=== PATIENT | female | born 1950 ===

== ENCOUNTER 2018-07-21 03:06 | Inpatient (IN) | payer MEDICARE, MEDICAID ==
[2018-07-21 03:06] VITALS: BMI 31.1
[2018-07-21] MEDS ORDERED: Sodium Chloride 0.9% 1,000 ML IV ONE ×2 (03:27→07:06)
--- NOTE | 2018-07-21 03:29 | C.PDOC ---
History Of Present Illness 67 year old female presents to the ED c/o abdominal pain and rectal bleeding that started yesterday. Patient also noticed some bleeding tonight, not heavy bleeding. Patient denies dizziness, headache, CP, palpitations, SOB, nausea, vomit, diarrhea, weakness, numbness. Chief Complaint (Nursing): Abdominal Pain History Per: Patient History/Exam Limitations: no limitations Onset/Duration Of Symptoms: Days Current Symptoms Are (Timing): Still Present Location Of Pain/Discomfort: Diffuse Radiation Of Pain To:: None Quality Of Discomfort: "Pain" Associated Symptoms: denies: Nausea, Vomiting, Diarrhea, Urinary Symptoms Alleviating Factors: None Recent travel outside of the [place]: No Additional History Per: Patient Abnormal Vaginal Bleeding: No Past Medical History Reviewed: Historical Data, Nursing Documentation, Vital Signs Vital Signs: Last Vital Signs Temp 97.9 F 07/21/18 03:15 Pulse 109 H 07/21/18 03:15 Resp 20 07/21/18 03:15 BP 146/80 07/21/18 03:15 Pulse Ox 99 07/21/18 06:01 - Medical History PMH: Anxiety, Arthritis, Depression, Diabetes (type II), Graves' Disease, HTN, Hypercholesterolemia Denies: Chronic Kidney Disease Surgical History: No Surg Hx - [facility] Procedures GROUP PSYCHOTHERAPY (01/05/17) INDIVIDUAL PSYCHOTHERAPY, COGNITIVE-BEHAVIORAL (01/05/17) OTHER SKIN & SUBQ I D (02/07/15) Family History: States: Unknown Family Hx - Social History Hx Tobacco Use: No Hx Alcohol Use: No Hx Substance Use: No - Immunization History Hx Tetanus Toxoid Vaccination: No Hx Influenza Vaccination: No Hx Pneumococcal Vaccination: No Review Of Systems Constitutional: Negative for: Fever, Chills Cardiovascular: Negative for: Chest Pain, Palpitations Respiratory: Negative for: Cough, Shortness of Breath Gastrointestinal: Positive for: Abdominal Pain, Melena. Negative for: Nausea, Vomiting Skin: Negative for: Rash Neurological: Negative for: Weakness, Numbness, Headache, Dizziness Physical Exam - Physical Exam Appears: Non-toxic, No Acute Distress Skin: Normal Color, Warm, Dry Head: Atraumatic, Normacephalic Eye(s): bilateral: Normal Inspection Oral Mucosa: Moist Neck: Normal ROM, Supple Chest: Symmetrical Cardiovascular: Rhythm Regular Respiratory: Normal Breath Sounds, No Rales, No Rhonchi, No Wheezing Gastrointestinal/Abdominal: Soft, Tenderness (mild hypogastric), No Guarding, No Rebound Rectal: Other (blood mucoid material observed, no active bleeding ) Extremity: Normal ROM, No Tenderness, No Swelling Neurological/Psych: Oriented x3, Normal Speech Gait: Steady ED Course And Treatment - Laboratory Results Result Diagrams: 07/21/18 03:35 07/21/18 03:35 O2 Sat by Pulse Oximetry: 99 (ON RA) Pulse Ox Interpretation: Normal - CT Scan/US CT abd/pelvis Other Rad Studies (CT/US): Read By Radiologist, Radiology Report Reviewed CT/US Interpretation: EXAM: CT Abdomen and Pelvis With Intravenous Contrast. EXAM DATE/TIME: 07/21/2018 3:26 AM. CLINICAL HISTORY: 67 years old, female; Pain; Abdominal pain; Patient HX: 1-7-17; Additional info: Lower abd pain/. rectal bleed. TECHNIQUE: Axial computed tomography images of the abdomen and pelvis with intravenous contrast. 723. images are submitted. Axial reformatted images are submitted in lung and soft tissues. Oral contrast. was administered. All CT scans at this facility use at least one of these dose optimization techniques: automated. exposure control; mA and/or kV adjustment per patient size (includes targeted exams where dose is. matched to clinical indication); or iterative reconstruction. Coronal and sagittal reformatted images were created and reviewed. COMPARISON: CT - ABD PELVIS PO CONTRAST ONLY 12/05/2016 2:18 PM. FINDINGS: Artifacts: Limited due to motion and misregistration artifacts. Lower thorax: There is hazy groundglass opacity to the lungs with hyperlucency. Correlation with. patient's clinical history of reactive airway disease is recommended. ABDOMEN: Liver: Enlarged fatty nodular liver. Gallbladder and bile ducts: Gallstones gallbladder wall prominence.If clinically warranted, a right. upper quadrant ultrasound and correlation with LFTs may be helpful for further assessment. Pancreas: Normal. No ductal dilation. Spleen: Normal. No splenomegaly. SHILPI PADILLA | Preliminary Radiology Report. CONFIDENTIALITY STATEMENT. This report is intended only for the use of the referring physician, and only in accordance with law, If you received this in error, call [phone]. Page 2 of 2. Adrenals: Minimal nodular thickening of the right adrenal gland. Left adrenal gland unchanged from. prior examination from 2017 representing benign etiology. Kidneys and ureters: Normal. No hydronephrosis. Stomach and bowel: Diverticulosis. There is thickening of splenic flexure and left colon with. pericolic inflammation and possible left upper quadrant diverticulosis suspicious for infectious or. inflammatory colitis/diverticulitis. Appendix: Normal appendix. PELVIS: Bladder: Partially decompressed bladder with bladder wall thickening. Correlation with urinalysis is. recommended only if clinical cystitis is suspected. Reproductive: Uterus is seen. ABDOMEN and PELVIS: Intraperitoneal space: Normal. No free air. No significant fluid collection. Bones/joints: No acute fracture. No dislocation. Soft tissues: Unremarkable. Vasculature: The aorta demonstrates calcified plaque and is mildly ectatic but normal in caliber. Lymph nodes: Normal. No enlarged lymph nodes. Other findings: Clips slow transit. IMPRESSION: 1. There is thickening of splenic flexure and left colon with pericolic inflammation and possible left. upper quadrant diverticulosis suspicious for infectious or inflammatory colitis/ diverticulitis. 2. Gallstones gallbladder wall prominence.If clinically warranted, a right upper quadrant ultrasound. and correlation with LFTs may be helpful for further assessment. Correlation with internal medicine evaluation and further workup or followup as recommended by. patient's clinical data. Thank you for allowing us to participate in the care of your patient. Dictated and Authenticated by: Gracie Arauz MD. 07/21/2018 5:54 AM Eastern Time ( [place] & [place]) Medical Decision Making Medical Decision Making: Plan: * CT abd/pelvis * Labs * IV fluids * UA Disposition Discussed With : Melanie Du Doctor Will See Patient In The: Hospital Counseled Patient/Family Regarding: Diagnosis - Disposition Disposition: HOSPITALIZED Disposition Time: 06:35 Condition: STABLE Forms: [facility] ([place]ian) - POA Present On Arrival: None - Clinical Impression Clinical Impression: Rectal bleed, Diverticulitis, UTI (urinary tract infection) - Scribe Statement The provider has reviewed the documentation as recorded by the Scribe Rubio Herndon All medical record entries made by the Scribe were at my direction and personally dictated by me. I have reviewed the chart and agree that the record accurately reflects my personal performance of the history, physical exam, medical decision making, and the department course for this patient. I have also personally directed, reviewed, and agree with the discharge instructions and disposition.
[2018-07-21] MEDS ORDERED: Iohexol 240 (50 ml) PO ONE (03:31)
[2018-07-21 03:39] LABS: BASO # 0.1 K/uL (0.0-0.2); BASO % 0.6 % (0.0-2.0); EOS # 0.2 K/uL (0.0-0.7); EOS % 2.5 % (0.0-4.0); HEMOGLOBIN 12.9 g/dL (11.0-16.0); LYMPH # 3.2 K/uL (1.0-4.3); MEAN CELL VOLUME 84.5 fL (81.0-99.0); MEAN CORPUSCULAR HEMOGLOBIN 27.8 pg (27.0-31.0); MEAN CORPUSCULAR HGB CONC 32.9 g/dL (33.0-37.0); MEAN PLATELET VOLUME 9.7 fL (7.2-11.7); MONO # 0.5 K/uL (0.0-0.8); MONO % 4.8 % (0.0-10.0); NEUT # 5.7 K/uL (1.8-7.0); NEUT % 59.1 % (50.0-75.0); RBC 4.64 Mil/uL (3.80-5.20); RED CELL DISTRIBUTION WIDTH 13.3 % (11.5-14.5); WHITE BLOOD COUNT 9.7 K/uL (4.8-10.8)
[2018-07-21] MEDS ORDERED: Iohexol 240 (50 ml) ONE (03:43)
[2018-07-21] MEDS ORDERED: Sodium Chloride 0.9% 1,000 ML ONE (03:43)
[2018-07-21 03:49] LABS: INR 1.1; PROTHROMBIN TIME 12.3 SECONDS (9.7-12.2)
[2018-07-21 03:50] LABS: ALB/GLOB RATIO 1.2 (1.0-2.1); ALBUMIN 4.5 g/dL (3.5-5.0); ALT/SGPT 25 U/L (9-52); AST/SGOT 26 U/L (14-36); BLOOD UREA NITROGEN 13 mg/dL (7-17); CALCIUM 9.5 mg/dl (8.6-10.4); GFR NON-AFRICAN AMERICAN > 60
[2018-07-21 03:50] LABS: SQUAMOUS EPITHIAL 3 /hpf (0-5); URINE BACTERIA RARE (<OCC); URINE BILIRUBIN NEGATIVE (NEGATIVE); URINE BLOOD 2+ (NEGATIVE); URINE CLARITY Hazy (Clear); URINE COLOR Amber (YELLOW); URINE GLUCOSE (UA) NORMAL (Normal); URINE HYALINE CAST >20 /lpf (0-2); URINE LEUKOCYTE ESTERASE 1+ Leu/uL (Negative); URINE PROTEIN 1+ mg/dL (NEGATIVE)
[2018-07-21] MEDS ORDERED: Potassium Chloride 20 mEq/15 ml LIQ UD PO STA (04:09)
[2018-07-21] MEDS ORDERED: Potassium Chloride 20 mEq/15 ml LIQ UD ONE (04:23)
[2018-07-21] MEDS ORDERED: Iodixanol 320 MG/ML 100 ML BOTTLE IV ONE (04:26)
[2018-07-21] MEDS ORDERED: Piperacillin/Tazobact 3.375 gm 100 ML IVPB STA (05:58)
[2018-07-21] MEDS ORDERED: metroNIDAZOLE IV 500 mg/100 ml 500 MG/100 ML BAG IVPB SCH (06:00)
[2018-07-21] MEDS ORDERED: metroNIDAZOLE IV 500 mg/100 ml 500 MG/100 ML BAG ONE (06:11)
[2018-07-21] MEDS ORDERED: Piperacillin/Tazobact 3.375 gm 100 ML IVPB ONE (06:11)
[2018-07-21] MEDS ORDERED: metroNIDAZOLE IV 500 mg/100 ml 500 MG/100 ML BAG IVPB STA (06:43)
[2018-07-21 07:34] VITALS: RESP 20
[2018-07-21] MEDS: (Novolin R) Insulin Human Regular 100 units/ml vial SC SCH ×4 (07:51→21:40)
[2018-07-21] MEDS: Ciprofloxacin 400mg/200ml D5W 400 MG/200 ML BAG IVPB SCH ×2 (08:35→19:31)
--- NOTE | 2018-07-21 08:37 | CT ---
Date of service: 07/21/2018 PROCEDURE: CT Abdomen and Pelvis without intravenous contrast HISTORY: Lower abdominal pain. Rectal bleeding. COMPARISON: CT abdomen and pelvis dated 12/05/2016. TECHNIQUE: Multiple contiguous axial images were performed through the abdomen and pelvis with the use of intravenous contrast. Subsequently, sagittal and coronal reformatted images were obtained. Radiation dose: Total exam DLP = 1128 mGy-cm. This CT exam was performed using one or more of the following dose reduction techniques: Automated exposure control, adjustment of the mA and/or kV according to patient size, and/or use of iterative reconstruction technique. FINDINGS: LOWER THORAX: Limited due to motion and misregistration artifacts. Hazy ground-glass opacity to the lungs with hyperlucency. Correlation with patient's clinical history of reactive airways disease is recommended. 7 millimeter nodular density within the medial aspect of the right lower lobe. LIVER: Enlarged fatty nodular liver. GALLBLADDER AND BILE DUCTS: Cholelithiasis. Gallbladder wall prominence. Correlation with right upper quadrant abdominal ultrasound may be helpful if clinically indicated. PANCREAS: Fatty infiltration of the pancreas. SPLEEN: Unremarkable. ADRENALS: Mild nodular thickening of the right adrenal gland. Persistent 2.8 x 1.8 centimeter low-attenuation lesion in the left adrenal gland demonstrating a Hounsfield unit attenuation postcontrast of 55, indeterminate. Correlation with multiphasic CT or MR may be helpful for further evaluation if clinically indicated. KIDNEYS AND URETERS: Unremarkable. No hydronephrosis. No solid mass. VASCULATURE: Calcified plaque in the aorta. Aorta is mildly ectatic but normal in caliber. BOWEL: Diverticulosis. Thickening of the splenic flexure and left hemicolon with pericolonic inflammation and possible left upper quadrant diverticulosis suggestive for an infectious and or inflammatory colitis/ diverticulitis. Clinical correlation. APPENDIX: No findings to suggest acute appendicitis. PERITONEUM: Unremarkable. No free fluid. No free air. LYMPH NODES: Unremarkable. No enlarged lymph nodes. BLADDER: Partially decompressed urinary bladder with bladder wall thickening. Correlation with urinalysis is recommended only if clinical cystitis is suspected. REPRODUCTIVE: Unremarkable. BONES: No acute fracture. OTHER FINDINGS: Clip slow transit. IMPRESSION: Thickening of the splenic flexure and left hemicolon with pericolonic inflammation and possible left upper quadrant diverticulosis is suggestive for an infectious and/or inflammatory colitis/ diverticulitis. Clinical correlation. Posttreatment interval followup is recommended to ensure resolution and exclude underlying lesion. Cholelithiasis with gallbladder wall prominence. If clinically warranted, a right upper quadrant abdominal ultrasound may be helpful for further evaluation. Persistent 2.8 x 1.8 centimeter low-attenuation lesion in the left adrenal gland demonstrating a Hounsfield unit attenuation postcontrast of 55, indeterminate. Correlation with multiphasic CT or MR may be helpful for further evaluation if clinically indicated. Additional findings as above. These findings were preliminarily reported at 5:54 a.m. on 07/21/[address] Gracie Arauz from [facility].
[2018-07-21] MEDS ORDERED: Potassium Chloride 20 mEq ER Tab PO ONE (10:00)
[2018-07-21] MEDS: Metoprolol Succinate 50 mg XL Tab PO SCH (10:02)
[2018-07-21] MEDS: Carboxymethylcellulose 1% Ophth Soln OU SCH ×2 (11:20→17:22)
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
[2018-07-21 12:48] LABS: HEMOGLOBIN 11.1 g/dL (11.0-16.0); MEAN CELL VOLUME 84.1 fL (81.0-99.0); MEAN CORPUSCULAR HEMOGLOBIN 28.4 pg (27.0-31.0); MEAN CORPUSCULAR HGB CONC 33.8 g/dL (33.0-37.0); MEAN PLATELET VOLUME 9.7 fL (7.2-11.7); RBC 3.9 Mil/uL (3.80-5.20); RED CELL DISTRIBUTION WIDTH 13.2 % (11.5-14.5); WHITE BLOOD COUNT 8.2 K/uL (4.8-10.8)
[2018-07-21] MEDS: metroNIDAZOLE IV 500 mg/100 ml 500 MG/100 ML BAG IVPB SCH ×2 (13:41→21:40)
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
[2018-07-21] MEDS ORDERED: Rosuvastatin Calcium 2.5 mg Tab PO SCH (22:00)
[2018-07-22] MEDS: metroNIDAZOLE IV 500 mg/100 ml 500 MG/100 ML BAG IVPB SCH ×2 (05:40→15:18)
[2018-07-22] MEDS: (Novolin R) Insulin Human Regular 100 units/ml vial SC SCH ×3 (07:47→16:47)
[2018-07-22 08:39] LABS: BASO % 0.6 % (0.0-2.0); EOS # 0.3 K/uL (0.0-0.7); EOS % 4.2 % (0.0-4.0); HEMOGLOBIN 11.8 g/dL (11.0-16.0); LYMPH # 1.9 K/uL (1.0-4.3); LYMPH % 30.9 % (20.0-40.0); MEAN CELL VOLUME 83.9 fL (81.0-99.0); MEAN CORPUSCULAR HEMOGLOBIN 28.4 pg (27.0-31.0); MEAN CORPUSCULAR HGB CONC 33.8 g/dL (33.0-37.0); MEAN PLATELET VOLUME 9.9 fL (7.2-11.7); MONO # 0.3 K/uL (0.0-0.8); NEUT # 3.7 K/uL (1.8-7.0); NEUT % 59.3 % (50.0-75.0); RBC 4.17 Mil/uL (3.80-5.20); RED CELL DISTRIBUTION WIDTH 13.2 % (11.5-14.5); WHITE BLOOD COUNT 6.3 K/uL (4.8-10.8)
[2018-07-22] MEDS: Ciprofloxacin 400mg/200ml D5W 400 MG/200 ML BAG IVPB SCH (08:55)
[2018-07-22 09:08] LABS: ALBUMIN 3.6 g/dL (3.5-5.0); ALT/SGPT 25 U/L (9-52); AST/SGOT 32 U/L (14-36); BLOOD UREA NITROGEN 9 mg/dL (7-17); CALCIUM 9.4 mg/dl (8.6-10.4); GFR NON-AFRICAN AMERICAN > 60
[2018-07-22] MEDS: Carboxymethylcellulose 1% Ophth Soln OU SCH ×2 (10:49→18:06)
[2018-07-22] MEDS: Metoprolol Succinate 50 mg XL Tab PO SCH (10:50)
[2018-07-22 16:05] VITALS: BP 163/81; PULSE 67; TEMP 98.1; O2SAT 98
[2018-07-22] MEDS ORDERED: Pneumococcal 23-Valent Vaccine IM ONE (16:41)
== END 2018-07-22 19:15 | disposition left against medical advice (07) | DRG 386 ==
LOC: C.ER 03:06 → C.9E 06:35 → C.3T 07:44
PROVIDERS: ADMIT Internal Medicine; ATTEND Internal Medicine
DX: K51.511 Left sided colitis with rectal bleeding (principal); N39.0 Urinary tract infection, site not specified; K59.09 Other constipation; K80.20 Calculus of gallbladder without cholecystitis without obstruction; I10 Essential (primary) hypertension; E11.9 Type 2 diabetes mellitus without complications; E05.00 Thyrotoxicosis with diffuse goiter without thyrotoxic crisis or storm; E78.5 Hyperlipidemia, unspecified; E78.00 Pure hypercholesterolemia, unspecified; F41.9 Anxiety disorder, unspecified; M19.90 Unspecified osteoarthritis, unspecified site